=== PATIENT | male | born 1950 | race Caucasian/White ===

== ENCOUNTER 2018-08-12 07:10 | Emergency (ER) | payer MEDICARE ==
[2018-08-12 07:29] VITALS: BP 111/81
--- NOTE | 2018-08-12 07:45 | UC ---
Skin Complaint HPI - HPI Summary HPI Summary: swelling right inguinal area x 5 days started as mild swelling , now is moderated and getting worse not painful , not itchy , + erythema of the right upper thigh , concern about enlarged lymphnode vs hernia no fever, + chills and body aches , no dysuria - History of Current Complaint Chief Complaint: [facility] Time Seen by Provider: 08/12/18 07:23 Stated Complaint: PERSONAL Hx Obtained From: Patient Onset/Duration: Gradual Onset, Lasting Days - 5, Still Present Timing: Constant Onset Severity: Mild Current Severity: Moderate Pain Intensity: 0 Location: Discrete - right inguinal area Character: Swelling, Redness Aggravating Factor(s): Nothing Alleviating Factor(s): Nothing Associated Signs & Symptoms: Positive: Chills, Rash. Negative: Nausea, Vomiting , Weakness, Fever, Cough, Wheezing, Bruising, Tenderness, Red Streaks Related History: Insect Bite/Sting - recent hx of tick bite - Allergy/Home Medications Allergies/Adverse Reactions: Allergies Allergy/AdvReac Type Severity Reaction Status Date / Time No Known Allergies Allergy Verified 08/12/18 07:29 Home Medications: Home Medications Acetaminophen [Tylenol] 1 tab PO ONCE 08/12/18 [History Confirmed 08/12/18] Atorvastatin* [Lipitor 40 MG*] 1 tab PO ONCE 08/12/18 [History Confirmed ] Losartan TAB* [Cozaar TAB*] 1 tab PO BID 08/12/18 [History Confirmed 08/12/18] PMH/Surg Hx/FS Hx/Imm Hx - Additional Past Medical History Additional PMH: hx of skin ca Cardiovascular History: Hypertension - Surgical History Surgical History: Yes Surgery Procedure, Year, and Place: double hernia repair . lymphnode removal - Family History Known Family History: Positive: Non-Contributory - Social History Alcohol Use: None Substance Use Type: None Smoking Status (MU): Never Smoked Tobacco Review of Systems All Other Systems Reviewed And Are Negative: Yes Constitutional: Positive: Chills, Fatigue Skin: Positive: Rash Eyes: Positive: Negative ENT: Positive: Negative Respiratory: Positive: Negative Is Patient Immunocompromised?: No Physical Exam Triage Information Reviewed: Yes Appearance: Well-Appearing, No Pain Distress, Well-Nourished Vital Signs: Initial Vital Signs Temp 98.6 F 08/12/18 07:23 Pulse 86 08/12/18 07:23 Resp 18 08/12/18 07:23 BP 111/81 08/12/18 07:23 Pulse Ox 95 08/12/18 07:23 Vital Signs Reviewed: Yes Eye Exam: Normal Eyes: Positive: Conjunctiva Clear ENT: Positive: Normal ENT inspection, Hearing grossly normal, Pharynx normal Neck: Positive: Supple, Nontender Respiratory: Positive: Chest non-tender, Lungs clear, Normal breath sounds Cardiovascular: Positive: RRR, No Murmur, Pulses Normal Abdomen Description: Positive: Nontender, Soft, Other: - + right inguinal lymphadenopathy , mild tenderness, Male Genital Exam: Positive: Inguinal Tenderness Skin: Positive: Other - + erthema right upper thing c/w cellulitis Course/Dx - Diagnoses Provider Diagnosis: Cellulitis of right thigh, Lymphoma of right inguinal region Discharge - Sign-Out/Discharge Documenting (check all that apply): Patient Departure All imaging exams completed and their final reports reviewed: No Studies - Discharge Plan Condition: Stable Disposition: HOME Prescriptions: DOXYcycline CAP(*) [DOXYcycline 100MG CAP(*)] 100 mg PO BID #28 cap Patient Education Materials: Cellulitis (ED) Referrals: Kristi Mahajan MD [Primary Care Provider] - 7 Days Additional Instructions: will treat for cellulitis with Doxy concern abut Lyme disease , will check for Lyme please follow up in one week with your pcp if not better, sooner if getting worse - Billing Disposition and Condition Condition: STABLE Disposition: Home
[2018-08-12 11:08] LABS: ABS Lymphocytes 0.8 10^3/ul (1.0-4.8); ABS Monocytes 0.8 10^3/ul (0-0.8); ABS Neutrophils 4.4 10^3/ul (1.5-7.7); Eosinophil % 0.1 %; Hematocrit 42 % (42-52); Hemoglobin 14.5 g/dL (14.0-18.0); Lymphocyte % 13.5 %; Mean Corpuscular HGB Conc 35 g/dL (31-36); Mean Corpuscular Hemoglobin 29 pg (27-31); Mean Corpuscular Volume 85 fL (80-94); Mean Platelet Volume 7.3 fL (7.4-10.4); Nucleated Red Blood Cells % 0.1; Platelet Count 190 10^3/uL (150-450); Red Blood Count 4.94 10^6 /uL (4.18-5.48); Red Cell Distribution Width 14 % (10-15); White Blood Count 6.1 10^3/uL (3.5-10.8)
== END 2018-08-12 07:58 | disposition home or self-care (01) ==
LOC: UCCORT 07:10
DX: L03.115 Cellulitis of right lower limb (principal); C85.95 Non-Hodgkin lymphoma, unspecified, lymph nodes of inguinal region and lower limb; I10 Essential (primary) hypertension; Z85.828 Personal history of other malignant neoplasm of skin
CPT/HCPCS: 36415; 85025; 86618; 99212; G0463

== ENCOUNTER 2022-01-16 09:54 | Observation (INO) ==
[~2022-01-16 09:54] MED LIST: Buffered Lidocaine 1% SYRIN 1 ml INTRADERM ONE; Dexamethasone IV 4 MG/ML VIAL 1 ml VIAL ONE; Famotidine IV 10 MG/ML 2 ml VIAL (20 mg) IV ONE; Lactated Ringers 1000 ml BAG 1,000 ML IV SCH; Lidocaine 2% PF 5 ML VIAL ONE; Midazolam 2 mg/2 ml VIAL 1 mg/ml 2 ml VIAL (2 mg) ONE; ROPIVACAINE 5 MG/ML 30 ML BTL (0.5%) ONE; Scopolamine 1 mg/72hr PATCH TRANSDERM ONE; fentaNYL 100 mcg/2 ml 50 MCG/ML VIAL ONE
[2022-01-16] MEDS ORDERED: Bupivacaine 0.25% SDV 30 ML ONE (10:20)
[2022-01-16] MEDS ORDERED: ceFAZolin 2 GM PREMIX 2 GM/50 ML BAG ONE (10:30)
[2022-01-16] MEDS ORDERED: Famotidine IV 10 MG/ML 2 ml VIAL (20 mg) ONE (10:33)
[2022-01-16] MEDS ORDERED: Scopolamine 1 mg/72hr PATCH ONE (10:33)
[2022-01-16] MEDS ORDERED: BUPIVACAINE **LIPOSOME/PF 13.3 MG/ML (266MG/ 20ML) VIAL (RESTRICTED) INFIL ONE (11:00)
[2022-01-16] MEDS ORDERED: Propofol 10 MG/ML 20 ML BTL ONE ×4 (12:04→12:59)
[2022-01-16] MEDS ORDERED: Ondansetron 4 mg VIAL 2 MG/ML 2 ml VIAL IV PRN ×2 (13:44→14:41)
[2022-01-16] MEDS ORDERED: Magnesium Hydroxide LIQ 30 ML UDC PO PRN (13:44)
[2022-01-16] MEDS ORDERED: Lactulose 30 ml UDC PO PRN (13:44)
[2022-01-16] MEDS ORDERED: Ondansetron ODT 4 mg TAB 4 MG TAB PO PRN (13:44)
[2022-01-16] MEDS ORDERED: Morphine 2 MG/ML SYRINGE IV PRN (13:44)
[2022-01-16] MEDS ORDERED: Lactated Ringers 1000 ml BAG 1,000 ML IV SCH (14:00)
[2022-01-16] MEDS ORDERED: Ondansetron 4 mg VIAL 2 MG/ML 2 ml VIAL ONE (14:16)
[2022-01-16] MEDS ORDERED: Prochlorperazine 5 mg/ml 2 ml VIAL (10 mg) IV PRN (14:41)
[2022-01-16] MEDS ORDERED: Metoclopramide 5 MG/ML VIAL (10 mg) IV PRN (14:41)
[2022-01-16] MEDS ORDERED: Prochlorperazine 5 mg/ml 2 ml VIAL (10 mg) ONE (14:47)
[2022-01-16] MEDS: ceFAZolin 1 GM ADVAN 1 GM in NS 0.9% 50 ML 50 ML IVPB SCH (19:35)
[2022-01-16] MEDS: Lactated Ringers 1000 ml BAG 1,000 ML IV SCH (22:17)
[2022-01-16] MEDS: Magnesium Hydroxide LIQ 30 ML UDC PO SCH (22:27)
[2022-01-17] MEDS: Lactated Ringers 1000 ml BAG 1,000 ML IV SCH (03:27)
[2022-01-17] MEDS: ceFAZolin 1 GM ADVAN 1 GM in NS 0.9% 50 ML 50 ML IVPB SCH ×2 (03:27→11:37)
[2022-01-17 07:00] LABS: Hematocrit 42 % (42-52); Hemoglobin 13.8 g/dL (14.0-18.0); Platelet Count 270 10^3/uL (150-450)
[2022-01-17 07:13] LABS: Calcium 9.2 mg/dL (8.6-10.3); Potassium 4.1 mmol/L (3.5-5.0); eGFR CKD-EPI 93.1 (>60)
[2022-01-17] MEDS: Magnesium Hydroxide LIQ 30 ML UDC PO SCH (08:13)
[2022-01-17] MEDS ORDERED: Vitamin THERAPEUTIC TAB PO SCH (09:00)
[2022-01-17 11:00] VITALS: BP 107/67
== END 2022-01-17 12:55 | disposition home or self-care (01) ==
LOC: OR 09:54 → SSU 09:54
PROVIDERS: ADMIT Orthopaedic Surgery Sports Medicine; ATTEND Orthopaedic Surgery Sports Medicine